=== PATIENT | female | born 1950 | race Caucasian/White ===

== ENCOUNTER 2016-11-15 11:28 | Emergency (ER) | payer OTHER ==
[2016-11-15] MEDS ORDERED: ONDANSETRON 4 MG/2 ML VIAL IVP ONE (11:43)
[2016-11-15] MEDS ORDERED: HYDROmorphONE/DILAUDID 1 MG/ML SYR IVP ONE (11:43)
[2016-11-15] MEDS ORDERED: NS 1,000 ML IV ONE (11:48)
[2016-11-15 11:53] LABS: % IMMATURE GRANULYOCYTES 0.6 % (0.0-1.1); ABSOLUTE IMMATURE GRANULOCYTES 0.05 10^3/uL (0.00-0.10); ADD DIFF? NO; ADD MORPH? NO; ADD SCAN? NO; ATYPICAL LYMPHOCYTE FLAG 0 (0-99); FRAGMENT RBC FLAG 0 (0-99); HEMOGLOBIN 14.9 g/dL (12.6-16.3); LEFT SHIFT FLG 10 (0-99); LIPEMIA HEMOLYSIS FLAG 90 (0-99); MEAN CELL HEMOGLOBIN 31.1 pg (27.9-34.1); MEAN CELL HEMOGLOBIN CONCENTR. 34.7 g/dL (32.4-36.7); MEAN CELL VOLUME 89.8 fL (81.5-99.8); MEAN PLATELET VOLUME 11.1 fL (8.7-11.7); PLATELET CLUMPS FLAG 0 (0-99); PLATELET COUNT 240 10^3/uL (150-400); RED BLOOD CELL COUNT 4.79 10^6/uL (4.18-5.33); RED CELL DISTRIBUTION WIDTH 13.5 % (11.5-15.2)
[2016-11-15 12:01] LABS: COLOR YELLOW; LEUKOCYTE ESTERASE,URINE TRACE (NEGATIVE); NITRITE,URINE NEGATIVE (NEGATIVE)
[2016-11-15 12:13] VITALS: PULSE 55; RESP 18
[2016-11-15 12:22] LABS: ANION GAP 13 mEq/L (8-16); CALCIUM 9.6 mg/dL (8.5-10.4); CARBON DIOXIDE 25 mEq/l (22-31); CHLORIDE 106 mEq/L (97-110); CREATININE 0.8 mg/dL (0.6-1.0); GLOMERULAR FILTRATION RATE > 60; GLUCOSE 112 mg/dL (70-100); POTASSIUM 4.1 mEq/L (3.5-5.2); SODIUM 144 mEq/L (134-144)
[2016-11-15] MEDS ORDERED: KETOROLAC 15 MG/1 ML SDV IVP ONE (12:29)
[2016-11-15 12:30] LABS: MUCUS 2+ /lpf (NONE-1+); RBC,URINE 50-182 /hpf (0-3)
[2016-11-15] MEDS ORDERED: TAMSULOSIN HCL 0.4 MG CAP PO ONE (12:30)
--- NOTE | 2016-11-15 12:30 | EDPHY ---
H & P Stated Complaint: L FLANK PAIN, VOMITING. HX OF KIDNEY STONES Source: Patient Exam Limitations: No limitations - Personal History Current Tetanus/Diphtheria Vaccine: Yes Current Tetanus Diphtheria and Acellular Pertussis (TDAP): Yes - Medical/Surgical History Hx Asthma: No Hx Chronic Respiratory Disease: No Hx Diabetes: No Hx Cardiac Disease: No Hx Renal Disease: No Hx Cirrhosis: No Hx Alcoholism: No Hx HIV/AIDS: No Hx Splenectomy or Spleen Trauma: No Other PMH: PMH- KIDNEY STONES, ARTHRITIS - Social History Smoking Status: Never smoked Time Seen by Provider: 11/15/16 11:38 HPI/ROS: CHIEF COMPLAINT: left flank, left lower quadrant pain HISTORY OF PRESENT ILLNESS: 66-year-old female presents emergency department complaining of sudden onset left-sided low back pain that started this morning after awakening. Patient reports emesis x2. She also reports a suprapubic pressure. Patient has a history of kidney stones and this feels similar. She states her last stone was in 2001. Patient reports urinary frequency and urgency, no dysuria, no hematuria. She denies fevers. Patient denies chest pain or shortness of breath. REVIEW OF SYSTEMS: A comprehensive 10 point review of systems is otherwise negative aside from elements mentioned in the history of present illness. (Gudelia Cross) - Physical Exam Exam: Physical Exam Gen: Alert and Oriented, NAD, vital signs reviewed, respirations are documented 114, they are 18. HEENT: PERRL, moist mucous membranes NECK: no meningismus CV: regular rate and regular rhythm PULM: CTAB, no wheezes ABDOMEN: soft, mild suprapubic tenderness to palpation, BS present BACK: Left CVA tenderness NEURO: Neurologically grossly intact EXTREMITIES: normal appearing SKIN: no rash or break in skin on exposed skin PSYCH: answers questions appropriately. (Gudelia Cross) Constitutional: Initial Vital Signs Temperature (C) 36.4 C 11/15/16 11:29 Heart Rate 63 11/15/16 11:29 Respiratory Rate 114 H 11/15/16 11:29 Blood Pressure 127/67 H 11/15/16 11:29 O2 Sat (%) 98 11/15/16 11:29 O2 Delivery Mode Room Air O2 (L/minute) 2 Allergies/Adverse Reactions: No Known Allergies Allergy (Unverified 07/15/13 17:29) Home Medications: Medication Instructions Recorded Ondansetron Odt [Zofran Odt] 4 mg PO Q6-8PRN PRN #8 tab 11/15/16 Tamsulosin HCl [Flomax 0.4 MG (*)] 0.4 mg PO DAILY #7 cap 11/15/16 oxyCODONE/APAP 5/325 [Percocet 1 - 2 tab PO Q6H PRN #12 tab 11/15/16 5/325] Medical Decision Making ED Course/Re-evaluation: IV established, CBC, chemistry panel, urinalysis obtained. Patient was given 1 mg of Dilaudid IV and 4 mg of Zofran for pain and nausea. Urinalysis shows 50-182 red blood cells, 3-5 white blood cells, CBC is unremarkable with no elevated white blood cell count, chemistry panel shows normal renal function. Patient was given 15 mg of IV Toradol for her suspected ureteral calculi, she was also given 0.4 mg of tamsulosin p.o. patient's pain is controlled. She is able to drink without difficulty She is discharged home with a prescription for Percocet, Zofran and tamsulosin. She is given a referral for a urologist to follow up with as needed. She is given strict return precautions for fevers, vomiting, pain that is not controlled. Patient is comfortable with this plan. (Gudelia Cross) Differential Diagnosis: The differential diagnosis for the patient's flank pain included but was not limited to musculoskeletal causes, kidney stone, pyelonephritis, shingles, diverticulitis, appendicitis, and aortic aneurysm. (Gudelia Cross) Other Provider: PHYSICIAN DOCUMENTATION: The patient was evaluated and managed by the Physician [employer]. My co- signature indicates that I have reviewed this chart and I agree with the findings and plan of care as documented. I am the secondary supervising physician. (Guillaume Ramirez) - Data Points Laboratory Results: Laboratory Results 11/15/16 11:40 11/15/16 11:35 11/15/16 11/15/16 11/15/16 11:55 11:40 11:35 WBC 8.77 10^3/uL (3.80-9.50) RBC 4.79 10^6/uL (4.18-5.33) Hgb 14.9 g/dL (12.6-16.3) Hct 43.0 % (38.0-47.0) MCV 89.8 fL (81.5-99.8) MCH 31.1 pg (27.9-34.1) MCHC 34.7 g/dL (32.4-36.7) RDW 13.5 % (11.5-15.2) Plt Count 240 10^3/uL (150-400) MPV 11.1 fL (8.7-11.7) Neut % (Auto) 80.3 H % (39.3-74.2) Lymph % (Auto) 12.7 L % (15.0-45.0) [place] % (Auto) 5.5 % (4.5-13.0) Eos % (Auto) 0.3 L % (0.6-7.6) Baso % (Auto) 0.6 % (0.3-1.7) Nucleat RBC Rel Count 0.0 % (0.0-0.2) Absolute Neuts (auto) 7.05 H 10^3/uL (1.70-6.50) Absolute Lymphs (auto) 1.11 10^3/uL (1.00-3.00) Absolute Monos (auto) 0.48 10^3/uL (0.30-0.80) Absolute Eos (auto) 0.03 10^3/uL (0.03-0.40) Absolute Basos (auto) 0.05 10^3/uL (0.02-0.10) Absolute Nucleated RBC 0.00 10^3/uL (0-0.01) Immature Gran % 0.6 % (0.0-1.1) Immature Gran # 0.05 10^3/uL (0.00-0.10) Sodium 144 mEq/L (134-144) Potassium 4.1 mEq/L (3.5-5.2) Chloride 106 mEq/L (97-110) Carbon Dioxide 25 mEq/l (22-31) Anion Gap 13 mEq/L (8-16) BUN 28 H mg/dL (7-23) Creatinine 0.8 mg/dL (0.6-1.0) Estimated GFR > 60 Glucose 112 H mg/dL (70-100) Calcium 9.6 mg/dL (8.5-10.4) Urine Color YELLOW Urine Appearance MODERATELY TURBID Urine pH 5.0 (5.0-7.5) Ur Specific [place] 1.024 (1.002-1.030) Urine Protein 2+ H (NEGATIVE) Urine Ketones TRACE H (NEGATIVE) Urine Blood 3+ H (NEGATIVE) Urine Nitrate NEGATIVE (NEGATIVE) Urine Bilirubin NEGATIVE (NEGATIVE) Urine Urobilinogen NEGATIVE EU (0.2-1.0) Ur Leukocyte Esterase TRACE H (NEGATIVE) Urine RBC 50-182 H /hpf (0-3) Urine WBC 10-15 H /hpf (0-3) Ur Epithelial Cells NONE SEEN /lpf (NONE-1+) Urine Mucus 2+ H /lpf (NONE-1+) Ur Culture Indicated? INDICATED H (NI) Urine Glucose NEGATIVE (NEGATIVE) Medications Given: Discontinued Medications Hydromorphone HCl (Dilaudid) 1 mg IVP EDNOW ONE Stop: 11/15/16 11:44 Last Admin: 11/15/16 11:54 Dose: 1 mg Sodium Chloride (Ns) 1,000 mls @ 0 mls/hr IV ONCE ONE PRN Reason: Wide Open Stop: 11/15/16 11:49 Last Admin: 11/15/16 11:55 Dose: 1,000 mls Ketorolac Tromethamine (Toradol) 15 mg IVP EDNOW ONE Stop: 11/15/16 12:30 Last Admin: 11/15/16 12:38 Dose: 15 mg Ondansetron HCl (Zofran) 4 mg IVP EDNOW ONE Stop: 11/15/16 11:44 Last Admin: 11/15/16 11:54 Dose: 4 mg Tamsulosin HCl (Flomax) 0.4 mg PO EDNOW ONE Stop: 11/15/16 12:31 Last Admin: 11/15/16 12:39 Dose: 0.4 mg Departure - Departure Disposition: Home, Routine, Self-Care Clinical Impression: Renal colic on left side Condition: Good Instructions: Oxycodone/Acetaminophen (By mouth), Ondansetron (By mouth), Tamsulosin (By mouth), Kidney Stones (ED), Renal Colic (ED) Additional Instructions: Kidney stone: Take Percocet as needed for severe pain. Use Zofran as needed for nausea. Take ibuprofen 600 mg every 6-8 hours as needed for moderate pain. This will also help with inflammation. Take Flomax as directed. Followup with urology as directed for symptoms not improving. Strain urine. Return to the emergency department if you have worsening pain, fevers, persistent vomiting, or other concerns. Referrals: Ruthann Daniel MD [Medical Doctor] - As per Instructions (Urologist on-call) Prescriptions: Tamsulosin HCl [Flomax 0.4 MG (*)] 0.4 mg PO DAILY #7 cap oxyCODONE/APAP 5/325 [Percocet 5/325] 1 - 2 tab PO Q6H PRN #12 tab PRN Reason: Pain, Severe Ondansetron Odt [Zofran Odt] 4 mg PO Q6-8PRN PRN #8 tab PRN Reason: Nausea/Vomiting, Can'T Take Po
[2016-11-15 14:13] VITALS: BP 108/62; TEMP 97.9; O2SAT 93
== END 2016-11-15 14:28 | disposition home or self-care (01) ==
DX: N23 Unspecified renal colic (principal)
CPT/HCPCS: 96361; 96374; 96375; 99284; J1170; J1885; J2405

== ENCOUNTER 2016-11-15 23:11 | Inpatient (IN) | payer OTHER ==
[2016-11-15] MEDS ORDERED: HYDROmorphONE/DILAUDID 1 MG/ML SYR IVP ONE (23:26)
[2016-11-15] MEDS ORDERED: ONDANSETRON 4 MG/2 ML VIAL IVP ONE (23:26)
--- NOTE | 2016-11-15 23:37 | EDPHY ---
H & P Stated Complaint: low back pain 06/01, possible kidney stone, was here earlier HPI/ROS: CHIEF COMPLAINT: Flank pain, kidney stone HISTORY OF PRESENT ILLNESS: awoke this morning at 7:00 a.m. with left flank pain. It was mild to moderate at that time. Improved for an hour and then return. She was actually seen here in this department earlier today. Diagnosed with kidney stone and discharged home with pain medication, nausea medicine and Flomax. She took 1 pain pill soon after that and another 1 later. Her pain has been intractable without any improvement. Actually has worsened. Some nausea but no vomiting. No fever or chills. The pain radiates down into the left lower quadrant and labia. She now also complains of suprapubic fullness and difficulty urinating. No fever. No chills. History of stones with the most recent in 2001. no other associated complaints or modifying factors. REVIEW OF SYSTEMS: Ten systems reviewed and are negative unless otherwise noted in the HPI EXAMINATION General Appearance: Alert, no distress , pacing, no position of comfort Head: normocephalic, atraumatic Eyes: Pupils equal and round, no conjunctival pallor or injection ENT, Mouth: Mucous membranes moist Respiratory: Lungs are clear to auscultation Cardiovascular: tachycardic rate with regular rhythm. No murmur. Gastrointestinal: Abdomen is soft and nontender . Suprapubic tenderness without suprapubic fullness. Left CVA tenderness that is moderate. No tympany of the abdomen. No rigidity of the abdomen. Back: CVA tenderness. No bony abnormalities. Neurological: A&O, nonfocal, Normal steady gait Skin: Warm and dry, no rash Extremities: Nontender, no pedal edema DIFFERENTIAL DIAGNOSES: Including but not limited to renal colic, renal lithiasis, ureterolithiasis, cystitis, bladder stone, urinary tract infection, pyelonephritis MDM: 11:30 p.m. persistent CVA tenderness that radiates into the abdomen. The patient does have history and examination that is most likely consistent with stone. Labs were reviewed from earlier today. We placed an IV, administered pain medication and nausea medicine. We are obtaining a CT scan plane to evaluate for stone. Bladder scanner returned with only 20 cc in the bladder. We will re -evaluate after the CT scan and place a Franklin catheter or straight cath if needed 11:50 p.m. radiologist notified me that there is a 4 mm stone near the UVJ. This is causing [id number] hydronephrosis and ureteral nephrosis. I-STAT reveals a creatinine of 1.2. This is somewhat increased from 0.8 earlier today. I did review labs from today which do reveal a possible urinary tract infection, but CBC was unremarkable. She is afebrile and her pain is improved with the Dilaudid IV. I administered IV fluids as well as Rocephin IV. Bladder scan and CT scan do not show any significant urine retention in the bladder. I have discussed the case with the hospitalist Dr. Wooten, and he will admit the patient for observation status. Patient and spouse are comfortable with this plan. SUPERVISION: This patient was independently evaluated without the aide of supervising physician. Source: Patient, Family Exam Limitations: No limitations - Personal History Current Tetanus/Diphtheria Vaccine: Unsure Current Tetanus Diphtheria and Acellular Pertussis (TDAP): Unsure - Medical/Surgical History Hx Asthma: No Hx Chronic Respiratory Disease: No Hx Diabetes: No Hx Cardiac Disease: No Hx Renal Disease: No Hx Cirrhosis: No Hx Alcoholism: No Hx HIV/AIDS: No Hx Splenectomy or Spleen Trauma: No Other PMH: PMH- KIDNEY STONES, ARTHRITIS - Social History Smoking Status: Never smoked Constitutional: Initial Vital Signs Temperature (C) 97.5 F 11/15/16 23:11 Heart Rate 65 11/15/16 23:11 Respiratory Rate 16 11/15/16 23:11 Blood Pressure 119/86 H 11/15/16 23:11 O2 Sat (%) 96 11/15/16 23:11 O2 Delivery Mode Room Air Allergies/Adverse Reactions: No Known Allergies Allergy (Unverified 07/15/13 17:29) Home Medications: Medication Instructions Recorded Ondansetron Odt [Zofran Odt] 4 mg PO Q6-8PRN PRN #8 tab 11/15/16 Tamsulosin HCl [Flomax 0.4 MG (*)] 0.4 mg PO DAILY #7 cap 11/15/16 oxyCODONE/APAP 5/325 [Percocet 1 - 2 tab PO Q6H PRN #12 tab 11/15/16 5/325] Departure - Departure Disposition: [facility] Inpatient Acute Clinical Impression: Hydronephrosis with urinary obstruction due to ureteral calculus, Flank pain, Renal colic on left side Urinary tract infection Qualifiers: Urinary tract infection type: site unspecified Hematuria presence: without hematuria Qualifier Code: (N39.0) Urinary tract infection, site not specified Condition: Good
[2016-11-15] MEDS ORDERED: NS 1,000 ML IV ONE (23:38)
--- NOTE | 2016-11-15 23:53 | CT ---
CT Scan of the Urinary Tract (Abdomen and Pelvis Without Contrast) Indication: Left flank pain. Technique: Multidetector helical CT imaging was performed from the kidneys to the urinary bladder wi thout contrast. Dose reduction techniques were utilized. Comparison: July 03, 2004 Findings: A 4 mm calculus in the distal left ureter, at the ureterovesical junction on image 234 of [email or web address], results in moderate left hydronephrosis and hydroureter. A 1 mm punctate calculus resides in the left intrarenal collecting system inferior pole on image 108. Punctate 1 mm calculus resides in the mid right kidney. No right-sided hydronephrosis or ureteral calculi. The urinary bladder is nearl y completely empty. Bowel pattern is normal with exception of mild constipation. The appendix is normal. The uterus is normal size. No adnexal mass. The noncontrast liver, spleen, pancreas, adrenal glands are unremarkable. No focal liver lesion or bi liary dilation. The lung bases are clear. The heart size is normal. The abdominal aorta is normal caliber mild calcif ied plaque. An old mild L1 compression fracture has 25% height loss. L4 is anterolisthesis 4 mm at L5 . Broad-based disk bulge at L4-L5 results in moderate severe central canal narrowing. Impression: 1. 4 mm distal left ureteral calculus, at the ureterovesical junction, results in moderate left hydro nephrosis. 2. Bilateral nephrolithiasis. 3. Constipation. 4. No ascites or intra-abdominal mass. 5. Moderate severe central canal narrowing at L4-L5 due to grade 1 spondylolisthesis and disk bulge. Comment: Results were called to NICK Hernandes at 11:45 PM November 15, 2016. Attention: This CT examination is specifically designed to evaluate patients who are clinically susp ected of having acute obstructive uropathy. This examination does not use radiographic contrast, and as such, provides only a limited evaluation of the abdomen, pelvis and retroperitoneum. If there i s further clinical suspicion for pathological conditions other than obstructive uropathy, a complete CT evaluation of the abdomen and pelvis utilizing intravenous, oral, and rectal contrast should be co nsidered.
[2016-11-16] MEDS ORDERED: HYDROmorphONE/DILAUDID 2 MG/ML SYR IVP PRN (00:31)
[2016-11-16] MEDS ORDERED: HYDROmorphONE/DILAUDID 1 MG/ML SYR ONE (00:32)
[2016-11-16] MEDS ORDERED: ONDANSETRON DISINTEGRATING 4 MG TAB PO PRN (00:35)
[2016-11-16] MEDS ORDERED: ACETAMINOPHEN 325 MG TAB PO PRN (00:35)
[2016-11-16] MEDS ORDERED: PROMETHAZINE HCL 25 MG/ML INJ IVP PRN (00:35)
[2016-11-16] MEDS ORDERED: ONDANSETRON 4 MG/2 ML VIAL IVP PRN (00:35)
[2016-11-16] MEDS ORDERED: PROMETHAZINE HCL 25 MG/ML INJ ONE (00:36)
[2016-11-16] MEDS ORDERED: HYDROmorphONE/DILAUDID 6 MG/30 ML PCA IV PRN (00:36)
[2016-11-16] MEDS ORDERED: NALOXONE HCL 0.4 MG/ML INJ IVP PRN (00:36)
[2016-11-16] MEDS ORDERED: PROMETHAZINE HCL 25 MG/ML INJ IVP ONE (00:40)
[2016-11-16] MEDS ORDERED: HYDROmorphONE/DILAUDID 1 MG/ML SYR IVP PRN (01:02)
--- NOTE | 2016-11-16 02:50 | GHP ---
[f rep st] HISTORY AND PHYSICAL DATE OF ADMISSION: 11/15/2016 CHIEF COMPLAINT: Left flank pain. HISTORY OF PRESENT ILLNESS: This is a 66-year-old female, with a history of previous kidney stones. Her last 1 was 2001 which required lithotripsy. She presented with a sudden onset of left flank nadiya n, starting this morning, associated with nausea and vomiting. No fevers or chills. The pain is sim ilar to previous kidney stones. REVIEW OF SYSTEMS: A 10-point review of systems was obtained and was negative. PAST MEDICAL HISTORY: 1. Kidney stones. 2. Ankylosing spondylitis. MEDICATION: A biologic medicine for her ankylosing spondylitis. SOCIAL HISTORY: No smoking. No alcohol. FAMILY HISTORY: Father had kidney stones. PHYSICAL EXAM: VITAL SIGNS: Afebrile, blood pressure is 98/74, heart rate 67, oxygen saturation 99% on 2 L. GENERAL: The patient is well developed. No apparent distress. HEENT: Nonicteric sclerae . Extraocular movements Intact. Moist mucous membranes. NECK: Supple. No thyromegaly. LUNGS: G ood effort. Clear to auscultation bilaterally. CARDIOVASCULAR: Regular rate and rhythm. No murmur s, gallops. ABDOMEN: Positive bowel sounds. Soft, nontender, nondistended. No hepatosplenomegaly. BACK: Positive left CVA tenderness. EXTREMITIES: No clubbing, cyanosis, or edema. SKIN: Withou t rash. NEUROLOGIC: Intact. Alert and oriented x3. Moving all 4 extremities equally. PSYCH: Nor mal mood and affect. LABS: Labs from earlier hospital visit in the morning show a normal CBC and creatinine 1.2. UA does have positive leukocyte esterase, and 10-15 white cells, along with red cells. CT scan the abdomen and pelvis shows a 4 mm stone at the UV junction, with some mild hydro. ASSESSMENT: A 66-year-old female presenting with left nephrolithiasis. PLAN: 1. Left nephrolithiasis. We will continue with IV fluids and pain control. She does have some evid ence of urinary tract infection. This we will cover with ceftriaxone. She should be able to pass th e stone. 2. History of ankylosing spondylitis. /[id number]/MODL
[2016-11-16 05:26] LABS: % IMMATURE GRANULYOCYTES 0.2 % (0.0-1.1); ABSOLUTE IMMATURE GRANULOCYTES 0.02 10^3/uL (0.00-0.10); ADD DIFF? NO; ADD MORPH? NO; ADD SCAN? NO; ATYPICAL LYMPHOCYTE FLAG 0 (0-99); FRAGMENT RBC FLAG 0 (0-99); HEMATOCRIT 34.3 % (38.0-47.0); HEMOGLOBIN 11.6 g/dL (12.6-16.3); LEFT SHIFT FLG 0 (0-99); LIPEMIA HEMOLYSIS FLAG 90 (0-99); MEAN CELL HEMOGLOBIN 31.5 pg (27.9-34.1); MEAN CELL HEMOGLOBIN CONCENTR. 33.8 g/dL (32.4-36.7); MEAN CELL VOLUME 93.2 fL (81.5-99.8); MEAN PLATELET VOLUME 11.2 fL (8.7-11.7); PLATELET CLUMPS FLAG 0 (0-99); PLATELET COUNT 164 10^3/uL (150-400); RED BLOOD CELL COUNT 3.68 10^6/uL (4.18-5.33); RED CELL DISTRIBUTION WIDTH 13.8 % (11.5-15.2)
[2016-11-16 05:40] LABS: ANION GAP 7 mEq/L (8-16); CALCIUM 8.3 mg/dL (8.5-10.4); CARBON DIOXIDE 24 mEq/l (22-31); CHLORIDE 112 mEq/L (97-110); GLOMERULAR FILTRATION RATE 55; GLUCOSE 94 mg/dL (70-100); POTASSIUM 4.8 mEq/L (3.5-5.2); SODIUM 143 mEq/L (134-144)
[2016-11-16] MEDS: ENOXAPARIN 40 MG/0.4 ML SYR SC SCH (09:03)
[2016-11-16] MEDS: NS 1,000 ML IV SCH (14:50)
--- NOTE | 2016-11-16 17:26 | HOSPPROG ---
Hospitalist Progress Note Assessment/Plan: DIAGNOSIS: # ACUTE KIDNEY STONE WITH HYDRONEPHROSIS AND RENAL COLIC # MILD PYURIA, LOW SUSPICION BUT COULD NOT RULE OUT INFECTION PLANS: -she is still having pain at this time so will continue IV hydration and symptomatic therapy, continue screening for stone -will continue antibiotics until we see if anything grows and culture and see how her clinical course goes -if she does not pass stone which is 4 mm may need to have Urology see her. I suspect she will probably be able to pass the stone which is at the UVJ SUBJECTIVE: Her pain is less than it was yesterday but she is still having flank pain. No chills or sweats no nausea, eating okay OBJECTIVE Vitals reviewed: Stable without fever Exam: alert oriented skin warm dry color ok resps not labored lungs clear BSs heart regular abd soft nondistended nontender, bowel sounds present limbs warm, no edema iv site ok Objective: Vital Signs Temp Pulse Resp BP Pulse Ox 36.9 C 60 16 98/64 L 96 11/16/16 07:51 11/16/16 07:51 11/16/16 07:51 11/16/16 13:51 11/16/16 07:51 Laboratory Results 11/16/16 05:11 11/16/16 05:11 11/15/16 11/16/16 11/17/16 06:59 06:59 06:59 Intake Total 1000 Output Total 1450 Balance 1000 -1450 ICD10 Worksheet Patient Problems: Problems Problem Status Diagnosed Flank pain Acute Hydronephrosis with ureteral calculus Acute Renal colic on left side Acute Urinary tract infection Acute
[2016-11-16] MEDS: OXYCODONE/APAP 5/325 TAB PO PRN ×2 (17:52→23:38)
[2016-11-16] MEDS ORDERED: TEMAZEPAM 15 MG CAP PO SCH (21:00)
[2016-11-17 07:24] VITALS: BP 123/73; PULSE 46; RESP 15; TEMP 97.8; O2SAT 97
[2016-11-17] MEDS: NS 1,000 ML IV SCH (08:03)
--- NOTE | 2016-11-17 09:42 | PDDCSUM ---
Discharge Summary Discharge Summary: DISCHARGE SUMMARY NOTE DISCHARGE DIAGNOSES: # obstructing kidney stone with hydronephrosis PROCEDURES: CT scan abdomen noncontrast showing obstructing kidney stone 4 mm HOSPITAL COURSE SUMMARY: The patient was treated with hydration and symptomatic therapies conservatively. There is no fevers or sepsis or other signs of infection. At this time her flank pains have completely resolved and it is anticipated she has passed the stone. She seems stable to be discharged home at this time. We reviewed hydration as a preventive strategy and also discussed low ox alk acid diet as a potential preventive strategy. MEDICATION CHANGES: None FOLLOW-UP PLAN: With primary care physician within 2 weeks Greater than 35 minutes bedside and care coordination time today
[2016-11-17] MEDS: ENOXAPARIN 40 MG/0.4 ML SYR SC SCH (10:15)
[2016-11-22 17:39] LABS: SOURCE OF STONE KIDNEY
[2016-11-22 17:40] LABS: NIDUS NOT OBSERVED
== END 2016-11-17 11:10 | disposition home or self-care (01) | DRG 694 ==
LOC: F1N 11-16 00:40 → OBSVTOIN 11-16 17:25
PROVIDERS: ADMIT Internal Medicine; ATTEND Internal Medicine
DX: N13.2 Hydronephrosis with renal and ureteral calculous obstruction (principal); M45.9 Ankylosing spondylitis of unspecified sites in spine
CPT/HCPCS: 82365-90; 82947-QW; 96374; G0378; J0696; J1170; J1650; J1885; J2405; J2550